=== PATIENT | female | born 1995 | race Caucasian/White ===

== ENCOUNTER 2022-05-06 21:51 | Emergency (ER) | payer OTHER ==
[~2022-05-06] VITALS: Ht 160 cm; Wt 75.9 kg
[2022-05-07] MEDS ORDERED: ALBUTEROL SULFATE 5 MG/ML 20 ML NEB SOLN [BULK] NEB ONE
[2022-05-07] MEDS ORDERED: IPRATROPIUM BROMIDE 0.5 MG/2.5 ML NEB SOLUTION NEB ONE
[2022-05-07] MEDS ORDERED: ALBUTEROL SULFATE 2.5 MG/0.5 ML NEB SOLUTION NEB ONE
[2022-05-07 00:27] LABS: COVID AG,FIA SOURCE NASAL SWAB
[2022-05-07 01:05] LABS: INFLUENZA TYPE A NEGATIVE FOR TYPE A (NEGATIVE); INFLUENZA TYPE B NEGATIVE FOR TYPE B (NEGATIVE)
[2022-05-07] MEDS ORDERED: PRED-554 PO (01:39)
[2022-05-07 01:46] VITALS: BP 137/85
== END 2022-05-07 01:47 | disposition home or self-care (01) ==
LOC: EMS 21:53
DX: O99.519 Diseases of the respiratory system complicating pregnancy, unspecified trimester (principal); Z3A.00 Weeks of gestation of pregnancy not specified; J45.909 Unspecified asthma, uncomplicated; Z20.822 Contact with and (suspected) exposure to COVID-19
CPT/HCPCS: 87804; 94640; 99283